=== PATIENT | female | born 1995 | race Caucasian/White ===

== ENCOUNTER 2018-05-30 05:54 | Day surgery (SDC) | payer BC ==
[2018-05-30] VITALS (11 sets, daily range): BP systolic 96–116; BP diastolic 45–67
[~2018-05-30] VITALS: Ht 160 cm; Wt 54.4 kg
[2018-05-30] MEDS ORDERED: TESTOSTERO200 MG/1 M IM (06:32)
[2018-05-30] MEDS ORDERED: ceFAZolin sod 2 GM in NS 55 ML IVPB ONE (07:00)
[2018-05-30] MEDS ORDERED: Dyna-Hex 2% Top Sol 2oz TOPIC ONE (07:09)
[2018-05-30] MEDS ORDERED: Bupivacaine 0.25% Inj 30ml INJ ONE (07:09)
[2018-05-30] MEDS ORDERED: Lidocaine 1% 10mg/ml/Epi 0.005mg/ml 30ml vial INJ ONE (07:09)
[2018-05-30] MEDS ORDERED: Bacitracin Oint 15gm Tube TOPIC ONE ×2 (07:09→10:01)
[2018-05-30] MEDS ORDERED: Muri-Lube ONE ×2 (07:09→07:46)
[2018-05-30] MEDS ORDERED: Propofol 200mg/20ml IV ONE ×2 (07:18→08:26)
[2018-05-30] MEDS ORDERED: Lidocaine 1% MPF 10mg/ml 5ml ONE (07:18)
[2018-05-30] MEDS ORDERED: fentaNYL 100 mcg/2 mL IV ONE (07:18)
[2018-05-30] MEDS ORDERED: Midazolam 2mg/2ml Inj ONE (07:19)
[2018-05-30] MEDS ORDERED: Succinylcholine 20mg/ml 10ml vial ONE (07:20)
[2018-05-30] MEDS ORDERED: TransDerm Scop 1.5mg/72HR Patch TDERMAL ONE ×2 (07:20→08:30)
[2018-05-30] MEDS ORDERED: Rocuronium Bromide 50mg/5ml Inj IV ONE ×2 (07:20→08:54)
--- NOTE | 2018-05-30 07:29 | Pre-Procedure Note/Attestation ---
Pre-Procedure Note/Attestation Complete Prior to Procedure Planned Procedure: bilateral Indications for Procedure Pre-Operative Diagnosis: gender identity disorder Attestation I attest that I discussed the nature of the procedure; its benefits; risks and complications; and alternatives (and the risks and benefits of such alternatives ), prior to the procedure, with the patient (or the patient's legal medical device sales representative). I attest that, if there was a reasonable possibility of needing a blood transfusion, the patient (or the patient's legal medical device sales representative) was given the [facility] standardized written summary, pursuant to the [place] Blood Safety Act ([place] Health and Safety Code # 1645, as amended). I attest that I re-evaluated the patient just prior to the surgery and that there has been no change in the patient's H&P, except as documented below: Jason Francisco MD May 30, 2018 07:29
[2018-05-30] MEDS ORDERED: Sterile Water Irrig 1000ml IRRIG ONE (07:30)
[2018-05-30] MEDS ORDERED: NS Irrig 1000ml ONE (07:30)
[2018-05-30] MEDS ORDERED: Metoprolol 5mg/5ml Inj ONE (07:55)
--- NOTE | 2018-05-30 08:21 | Anethesia Preoperative Eval ---
Anesthesia Pre-op PMH/ROS General Date of Evaluation: May 30, 2018 Time of Evaluation: 07:16 Anesthesiologist: Michael ASA Score: ASA 2 Mallampati Score Class I : Soft palate, uvula, fauces, pillars visible Class II: Soft palate, uvula, fauces visible Class III: Soft palate, base of uvula visible Class IV: Only hard plate visible Mallampati Classification: Class II Surgeon: Nolan Diagnosis: Gender dysphoria Surgical Procedure: Bilateral mastectomy Anesthesia History: none Social History: alcohol use - h/o AA member, currently sober, drug use Family History: no anesthesia problems Allergies: Coded Allergies: No Known Allergies (Unverified , 05/29/18) Medications: see eMAR Patient NPO?: Yes Past Medical History Cardiovascular: Denies: HTN, CAD, GA, valve dz, arrhythmia, other Pulmonary: Denies: asthma, COPD, LIBBY, other Gastrointestinal/Genitourinary: Reports: GERD - mild; Denies: CRI, ESRD, other Neurologic/Psychiatric: Reports: depression/anxiety; Denies: dementia, CVA, TIA, other Endocrine: Reports: other - On testosteron; Denies: DM, hypothyroidism, steroids HEENT: Denies: cataract (L), cataract (R), glaucoma, UPPER [place]I (L), UPPER [place] (R), other Hematology/Immune: Denies: anemia, DVT, bleeding disorder, other Musculoskeletal/Integumentary: Denies: OA, RA, DJD, DDD, edema, other PMH Narrative: as above PSxH Narrative: none Anesthesia Pre-op Phys. Exam Physician Exam Last Vital Signs Date Time Temp Pulse Resp B/P (MAP) Pulse Ox O2 Delivery O2 Flow Rate FiO2 05/30/18 06:32 97.9 80 20 110/52 100 Room Air Constitutional: NAD Neurologic: CN 2-12 intact Cardiovascular: RRR, no M/R/G Respiratory: CTA Gastrointestinal: S/NT/ND Airway Exam Mallampati Score: Class II MO: full Neck: flexible ROM: full Teeth: intact Dentures: no upper, no lower Anesthesia Pre-op A/P Labs see chart Urine Test Test 05/30/18 06:10 Urine HCG, Qualitative Negative (NEGATIVE) Risk Assessment & Plan Assessment: ASA 2 Plan: GA with ETT PONV prevention Status Change Before Surgery: No Pre-Antibiotics Drug: Ancef 1gr. Given Within 1 Hr of Incision: Yes Time Given: 07:56 David Rodriguez MD May 30, 2018 08:21
[2018-05-30] MEDS ORDERED: LR 1000ml 1,000 ML IVLG SCH (08:22)
[2018-05-30] MEDS ORDERED: Morphine Sulfate 10mg/ml Inj ONE (08:25)
[2018-05-30] MEDS ORDERED: Glycopyrrolate 0.2mg/ml 1ml Vial ONE (08:26)
[2018-05-30] MEDS ORDERED: Neostigmine 1mg/ml 10ml Inj ONE (08:26)
[2018-05-30] MEDS ORDERED: Sodium Chloride 10ml vial INJ ONE ×2 (08:26→09:06)
[2018-05-30] MEDS ORDERED: Hydromorphone 0.5mg/0.5ml inj IVP PRN (08:30)
[2018-05-30] MEDS ORDERED: DiphenhydrAMINE 50mg/ml Inj IVP PRN (08:30)
[2018-05-30] MEDS ORDERED: Ketorolac 30mg Inj IV PRN (08:30)
[2018-05-30] MEDS ORDERED: Midazolam 2mg/2ml Inj IVP PRN (08:30)
[2018-05-30] MEDS ORDERED: Meperidine 50mg/ml Inj(FOR RIGORS ONLY) IV PRN (08:30)
[2018-05-30] MEDS ORDERED: Acetaminophen (Non formulary) 100 ML IV ONE (08:30)
[2018-05-30] MEDS ORDERED: Metoclopramide 10mg/2ml Inj IVP PRN (08:30)
--- NOTE | 2018-05-30 10:49 | Operative Note - PDOC ---
Operative Note Operative Note Date of Operation/Procedure: May 30, 2018 Pre-op Diagnosis: gender identity disorder Procedure: bilateral mastectomy, bilateral nipple areola reconstruction Post-op Diagnosis: same as pre-op Surgeon: Nolan Anesthesiologist: Michael Anesthesia: general Specimen: yes - 1) right breast, 2) left breast Complications: none Condition: stable Estimated Blood Loss: minimal Drains: ROSARIO - x2 Implant(s) used?: No Jason Francisco MD May 30, 2018 10:49
--- NOTE | 2018-05-30 10:50 | Discharge Instructions ---
Discharge Instructions Discharge Instructions Follow up with: Dr. Francisco June 03 Diet: regular Resume Normal Activity?: Yes Activity: ambulate For Surgical Patients Dressing Care: keep dry and clean June shower: No - sponge bathe only For Congestive Heart Failure Reminder Report to your physician any weight gain of 5 pounds or more in one week. Jason Francisco MD May 30, 2018 10:50
[2018-05-30] MEDS ORDERED: Tylenol #3 tab (300mg/30mg) ORAL PRN (11:00)
[2018-05-30] MEDS ORDERED: HYDROmorphone 1mg/ml Carpuject SUBQ PRN (11:00)
[2018-05-30] MEDS ORDERED: HYDROcodone/Acetamin 5/325 tab ORAL PRN (11:00)
--- NOTE | 2018-05-30 11:05 | Immediate Post-Op Evaluation ---
Immediate Post-Op Evalulation Immediate Post-Op Evalulation Procedure: Bilateral mastectomy with nipple reconstruction Date of Evaluation: May 30, 2018 Time of Evaluation: 11:04 IV Fluids: 1500 Blood Products: none Estimated Blood Loss: 50 Urinary Output: 200 Blood Pressure Systolic: 112 Blood Pressure Diastolic: 56 Pulse Rate: 74 Respiratory Rate: 22 O2 Sat by Pulse Oximetry: 98 Temperature (Fahrenheit): 98.5 Pain Score (1-10): 1 Nausea: No Vomiting: No Complications none Patient Status: reacts, patent, extubated, none Hydration Status: adequate David Rodriguez MD May 30, 2018 11:05
--- NOTE | 2018-05-30 11:57 | 48 Hour Post Anesthesia Eval ---
Post Anesthesia Evaluation Procedure: Bilateral mastectomy with nipple reconstruction Date of Evaluation: May 30, 2018 Time of Evaluation: 11:56 Blood Pressure Systolic: 108 0: 74 Pulse Rate: 76 Respiratory Rate: 22 Temperature (Fahrenheit): 97.6 O2 Sat by Pulse Oximetry: 98 Airway: patent Nausea: No Vomiting: No Pain Intensity: 3 Hydration Status: adequate Cardiopulmonary Status: stable Mental Status/LOC: patient returned to baseline Follow-up Care/Observations: n/a Post-Anesthesia Complications: none Follow-up care needed: ready to discharge David Rodriguez MD May 30, 2018 11:57
[2018-05-30] MEDS ORDERED: D5 1/2NS 1,000 ML IV SCH (13:00)
--- NOTE | 2018-05-30 16:30 | Operative Note - Dictated ---
DATE OF OPERATION: 05/30/2018 PREOPERATIVE DIAGNOSIS: Gender identity disorder. POSTOPERATIVE DIAGNOSIS: Gender identity disorder. PROCEDURE: 1. Bilateral mastectomy. 2. Bilateral nipple areolar reconstruction. SURGEON: Jason Francisco M.D. ANESTHESIA: General. ESTIMATED BLOOD LOSS: 50 mL. SPECIMENS: 1. Right breast. 2. Left breast. COMPLICATIONS: None. CONDITION TO RECOVERY ROOM: Stable. INDICATION FOR PROCEDURE: This is a very pleasant 22-year-old trans male who desires Top surgery mastectomy as a part of his transition. He has the appropriate letter of recommendation from his therapist and meets all WPATH criteria for Top surgery. I have discussed the risks, benefits, and alternatives to the procedure with him including, but not limited to bleeding, infection, scarring, nerve injury, asymmetry, contour deformity, hematoma, seroma, loss of nipple sensation, loss of nipple graft, and need for additional surgery including revisions. I discussed the orientation of the incision and the unpredictable nature of scarring. No guarantees were made regarding the outcome. All of his questions have been answered to the best of my ability. He verbalized understanding with everything that we discussed and wishes to proceed. DESCRIPTION OF PROCEDURE: The patient was identified in the preoperative holding area and marked in the standing position. He was then brought to the operating room where he was placed in the supine position on the operating room table with his arms extended on arm boards. All bony prominences were adequately padded. Sequential compression devices were placed and intravenous antibiotics were administered. After induction of anesthesia, the patient's chest was prepped and draped in sterile fashion. Starting on the right chest first, the nipple-areola complex was placed on manual stretch and a [place] measuring 2.5 cm in diameter was drawn centered around the nipple. Next, I infiltrated the subdermal plane with 3 mL of 1% lidocaine with epinephrine. I then proceeded to incise the areolar marking using a #15 blade scalpel and proceeded to harvest a full-thickness nipple-areola composite graft. The graft was subsequently defatted, wrapped in wet gauze and placed on the back table. I then made inframammary fold incision using a #10 blade scalpel and dissected down to the level of the pectoralis major fascia. I then made the superior breast incision using a #10 blade scalpel and dissected down to the level of Sim fascia. Skin Rakes were used to retract the skin and a plane of dissection was created between the subcutaneous tissue and breast parenchyma heading in a superior direction towards the level of the clavicle. Afterwards, the breast parenchyma was then elevated off of the pectoralis major fascia proceeding from a lateral to medial direction. The specimen was passed off the table. Hemostasis was achieved and the wound was irrigated with saline. I then placed a 15-Malagasy Jose Francisco drain within the wound and brought it out through a separate stab incision and secured using 2-0 silk suture. Skin gloria were then used to temporarily reapproximate the skin. I shifted my attention to the contralateral side where the identical procedure was performed. The patient was then sat up on the operating room table. It appeared to be a very reasonable symmetry between the two sides of his chest. I then used a marking pen to draw out the proposed location of the new nipple-areolar complex on each side and these markings were confirmed with direct measurements. He was then placed back in the supine position. On each side of the chest, the skin gloria were removed. The Sim fascia layer was closed using interrupted 0-Vicryl suture followed by interrupted 3-0 PDS suture for the subdermal layer and then a running 3-0 Monocryl subcuticular suture to close the skin. Next, starting on the right chest first and then followed by the left chest, I proceeded with the nipple-areola reconstruction portion of the procedure. I incised the juliana-areola marking using a #15 blade scalpel and proceeded to de-epithelialize the intervening skin. I then brought out the full-thickness nipple areola graft onto the appropriate side of the chest and proceeded to inset it into the de-epithelialized area using a running 5-0 fast absorbing suture. Next, several 2-0 silk suture ties were placed around the periphery of the nipple-areola graft. A skin graft bolster was fashioned and secured and placed directly on top of the nipple-areolar graft and secured using a 2-0 silk suture ties to conclude the nipple-areolar reconstruction. Next, a 10 mL of 0.25% plain Marcaine were injected into each of the chest incisions. Sterile dressings were applied. The patient tolerated the procedure well and was sent to the recovery room in stable condition. All instrument, sharp, and sponge counts were correct at the conclusion of the case. Jason Francisco M.D. DR: NAKUL JOB#: [id number] CC: [email or web address]
== END 2018-05-30 12:45 | disposition home or self-care (01) ==
LOC: EDSEX 05:54 → SUR 05:54 → EDSEX 07:30 → SUR 12:45
DX: F64.9 Gender identity disorder, unspecified (principal); K21.9 Gastro-esophageal reflux disease without esophagitis; F32.9 Major depressive disorder, single episode, unspecified; F41.9 Anxiety disorder, unspecified; Z79.899 Other long term (current) drug therapy
CPT/HCPCS: 19303; 19350; 81025; J0330; J0690; J1885; J2250; J2270; J2405; J2704; J2710; J3010; J3490; 94003; 94150